=== PATIENT | male | born 1990 | race Caucasian/White ===

== ENCOUNTER 2022-02-06 03:16 | Emergency (ER) | payer OTHER ==
[2022-02-06] MEDS ORDERED: ONDANSETRON 4 MG/2 ML VIAL ONE (03:53)
[2022-02-06 04:02] LABS: Hematocrit 37.2 % (39.6-49.0); Lymphocytes % 11.1 % (15.3-44.8); MPV 8.4 fL (7.6-11.3); RBC Red Blood Cell Count 4.28 M/uL (4.33-5.43)
[2022-02-06 04:05] LABS: Protime INR 1.04
[2022-02-06 04:20] LABS: Urine Blood Trace-intact (Negative); Urine Glucose Negative (Negative); Urine Protein Negative (Negative); Urine Specific Gravity >=1.030 (1.005-1.030); Urine pH 5.5 (5.0-7.0)
[2022-02-06 04:30] LABS: ALT/SGPT 28 U/L (12-78); AST/SGOT 21 U/L (15-37); Albumin 3.4 g/dL (3.4-5.0); Alkaline Phosphatase 91 U/L (45-117); BUN Blood Urea Nitrogen 14 mg/dL (7-18); Bicarbonate 25 mmol/L (21-32); Bilirubin Total 0.2 mg/dL (0.2-1.0); Glomerular Filtration Rate 113 ml/min (=/>90); Glucose Level 87 mg/dL (74-106); Potassium 3.9 mmol/L (3.5-5.1); Protein, Total 7.3 g/dL (6.4-8.2); Sodium Level 140 mmol/L (136-145)
[2022-02-06 04:31] LABS: Bilirubin Direct < 0.1 mg/dL (0-0.2)
[2022-02-06 04:34] LABS: Barbiturates NEGATIVE (NEGATIVE); Benzodiazepines NEGATIVE (NEGATIVE); Cocaine NEGATIVE (NEGATIVE); METHAMPHETAM NEGATIVE (NEGATIVE); Methadone NEGATIVE (NEGATIVE); Opiates NEGATIVE (NEGATIVE); Phencyclidine NEGATIVE (NEGATIVE); THC Cannibis POSITIVE (NEGATIVE)
[2022-02-06] MEDS ORDERED: QUETIAPINE 100MG TAB ONE (05:33)
--- NOTE | 2022-02-06 07:26 | EDPHYS ---
Physician Documentation [facility] Name: Nicolas Rice Age: 32 yrs Sex: Male : 1990 Arrival Date: 02/06/2022 Time: 03:18 Bed 8 Private MD: ED Physician Vamsi Vargas HPI: 02/06 03:42 This 32 yrs old Male presents to ER via Unassigned with complaints of nausea/ vomiting, ms3 ate mushroom. 03:42 The patient presents to the emergency department Ate mushroom from his yard. Context: ms3 Method: the patient has a confirmed or suspected ingestion, Mushroom, Time: 3 hour(s) ago, Extent: Mushroom, the OD/poisoning occurred at at home. Associated signs and symptoms: Pertinent positives: nausea, vomiting. Severity of symptoms: At their worst the symptoms were severe in the emergency department the symptoms are unchanged Pain is currently a 10 / 10. Historical: - Allergies: 03:56 Bactrim; tw5 - PMHx: 03:56 Bipolar disorder; tw5 - PSHx: 03:56 None; tw5 - Immunization history:: Flu vaccine is not up to date. - Social history:: Smoking status: Patient reports the use of cigarette tobacco products, denies chronic smoking, but will smoke occasionally, Reported history of juuling and/or vaping. ROS: 03:42 Constitutional: Negative for fever, and chills. ENT: Negative for injury, pain, and ms3 discharge, Neck: Negative for injury, pain, and swelling, Cardiovascular: Negative for chest pain, and palpitations. Respiratory: Negative for shortness of breath, cough, wheezing, and pleuritic chest pain. 03:42 MS/Extremity: Negative for injury and deformity, Skin: Negative for injury, rash, and discoloration. 03:42 Abdomen/GI: Positive for nausea and vomiting. 03:42 All other systems are negative. Exam: 03:23 ECG was reviewed by the Attending Physician. ms3 03:42 Constitutional: This is a well developed, well nourished patient who is awake, alert, ms3 and in no acute distress. Head/Face: Normocephalic, atraumatic. Eyes: Pupils equal round and reactive to light, extra-ocular motions intact. Lids and lashes normal. Conjunctiva and sclera are non-icteric and not injected. Periorbital areas with no swelling, redness, or edema. Cardiovascular: Regular rate and rhythm with a normal S1 and S2. No gallops, murmurs, or rubs. Normal PMI, no JVD. No pulse deficits. Respiratory: Lungs have equal breath sounds bilaterally, clear to auscultation and percussion. No rales, rhonchi or wheezes noted. No increased work of breathing, no retractions or nasal flaring. Abdomen/GI: Soft, non-tender, with normal bowel sounds. No distension or tympany. No guarding or rebound. No evidence of tenderness throughout. Skin: Warm, dry with normal turgor. Normal color with no rashes, no lesions, and no evidence of cellulitis. MS/ Extremity: Pulses equal, no cyanosis. Neurovascular intact. Full, normal range of motion. Psych: Awake, alert, with orientation to person, place and time. Behavior, mood, and affect are within normal limits. Vital Signs: 03:52 BP 124 / 92; Pulse 81; Resp 14; Temp 97.4; Pulse Ox 100% ; Weight 65.77 kg; Height 6 tw5 ft. 0 in. (182.88 cm); Pain 9/10; 07:04 BP 110 / 70; Pulse 85; Resp 15; Pulse Ox 99% ; ll1 07:30 BP 92 / 63; Pulse 79; Resp 16 S; Pulse Ox 99% on R/A; jg9 08:33 BP 102 / 62; Pulse 78; Resp 16; Pulse Ox 99% ; ll1 03:52 Body Mass Index 19.67 (65.77 kg, 182.88 cm) tw5 MDM: 03:18 Patient medically screened. ms3 03:42 Differential diagnosis: Ingestion/exposure to Mushroom Electrolyte abnormality vs ms3 Elevated LFTs. 07:01 Transition of care: After a detail discussion of the patient's case, care is ms3 transferred to Vamsi Vargas MD. 07:16 Data reviewed: vital signs, nurses notes, lab test result(s), CBC, drug level(s), nimisha electrolytes, hepatic panel. 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 Test interpretation: by ED physician or midlevel provider: ECG. Counseling: I had a detailed discussion with the patient and/or guardian regarding: the historical points, exam findings, and any diagnostic results supporting the discharge/admit diagnosis, lab results, radiology results, the need for outpatient follow up, for definitive care, a family practitioner, a psychiatrist. 02/06 03:18 Order name: Acetaminophen; Complete Time: 04:39 ms3 02/06 03:18 Order name: Basic Metabolic Panel; Complete Time: 04:39 ms3 02/06 03:18 Order name: CBC with Diff; Complete Time: 04:07 ms3 02/06 03:18 Order name: ETOH Level; Complete Time: 04:39 ms3 02/06 03:18 Order name: Hepatic Function; Complete Time: 04:39 ms3 02/06 03:18 Order name: PT-INR; Complete Time: 04:07 ms3 02/06 03:18 Order name: Ptt, Activated; Complete Time: 04:07 ms3 02/06 03:18 Order name: Salicylate; Complete Time: 04:39 ms3 02/06 03:18 Order name: Urine Drug Screen; Complete Time: 04:39 ms3 02/06 04:21 Order name: Urine Dipstick-Ancillary; Complete Time: 04:39 EDMS 05 07:26 Order name: BMP; Complete Time: 08:25 ll1 02/06 07:26 Order name: Hepatic Function; Complete Time: 08:25 ll1 02/06 03:18 Order name: EKG; Complete Time: 03:42 ms3 02/06 03:18 Order name: EKG - Nurse/Tech; Complete Time: 03:59 ms3 02/06 03:18 Order name: IV Saline Lock; Complete Time: 03:59 ms3 02/06 03:18 Order name: Labs collected and sent; Complete Time: 03:59 ms3 02/06 03:18 Order name: Suicide Screening ([place]); Complete Time: 03:59 ms3 02/06 03:18 Order name: Urine Dipstick-Ancillary (obtain specimen); Complete Time: 04:21 ms3 EC:23 Rate is 86 beats/min. Rhythm is regular. QRS Sta[place] is Normal. Clinical impression: NSR ms3 w/ Non-specific ST/T Changes. Interpreted by me. Administered Medications: 03:55 Drug: Zofran (Ondansetron) 4 mg Route: IVP; Site: right antecubital; ke1 07:26 Follow up: Response: No adverse reaction ll1 05:42 Drug: SEROquel (QUEtiapine) 200 mg Route: PO; ke1 07:26 Follow up: Response: No adverse reaction ll1 Disposition Summary: 02/06/22 07:25 Discharge Ordered Location: Home nimisha Problem: new nimisha Symptoms: have improved nimisha Condition: Stable nimisha Diagnosis - Abdominal tenderness nimisha - Poisoning by other drugs, medicaments and biological substances, accidental nimisha (unintentional) Followup: nimisha - With: Private Physician - When: 2 - 3 days - Reason: Recheck today's complaints, Continuance of care, Re-evaluation by your physician Followup: nimisha - With: Renato Adkins MD - When: 2 - 3 days - Reason: Recheck today's complaints, Re-evaluation by your physician Discharge Instructions: - Discharge Summary Sheet nimisha - Abdominal Pain, Adult nimisha - Poisonous Plant Ingestion nimisha - Abdominal Pain, Adult, [id number] nimisha - Nontoxic Ingestion, Adult nimisha Forms: - Medication Reconciliation Form nimisha - Thank You Letter nimisha - Antibiotic Education nimisha - Prescription Opioid Use nimisha Signatures: Dispatcher [employer] EDVamsi Post MD MD cha Sims, Marcus, DO DO ms3 Karina Villegas tw5 Elaine Sherwood RN RN ke1 Alesha Ponce RN ll1 Corrections: (The following items were deleted from the chart) 03:57 03:56 Allergies: No Known Allergies; tw5 tw5
--- NOTE | 2022-02-06 07:26 | ER ---
Nurse's Notes [facility] Name: Nicolas Rice Age: 32 yrs Sex: Male : 1990 Arrival Date: 02/06/2022 Time: 03:18 Bed 8 Private MD: Diagnosis: Abdominal tenderness;Poisoning by other drugs, medicaments and biological substances, accidental (unintentional) Presentation: 02/06 03:52 Chief complaint: Patient states: "My stomach hurts so bad, please help me." EMS states: tw5 "His mother called EMS when nicolas started complaining of stomach pains. He ate a mushroom in his front yard about 3 hours ago hoping to get high.". Coronavirus screen: Vaccine status: Patient reports being unvaccinated. Ebola Screen: Patient negative for fever greater than or equal to 101.5 degrees Fahrenheit, and additional compatible Ebola Virus Disease symptoms Patient denies exposure to infectious person. Patient denies travel to an Ebola-affected area in the 21 days before illness onset. Initial Sepsis Screen: Does the patient meet any 2 criteria? No. Patient's initial sepsis screen is negative. Does the patient have a suspected source of infection? No. Patient's initial sepsis screen is negative. Risk Assessment: Do you want to hurt yourself or someone else? Patient reports no desire to harm self or others. Onset of symptoms was February 05, 2022 at 22:00. 03:52 Method Of Arrival: EMS: [facility] tw5 03:52 Acuity: ADENIKE 3 tw5 Triage Assessment: 03:56 General: Appears uncomfortable, Behavior is anxious. Pain: Complains of pain in abdomen tw5 Pain currently is 9 out of 10 on a pain scale. Historical: - Allergies: 03:56 Bactrim; tw5 - PMHx: 03:56 Bipolar disorder; tw5 - PSHx: 03:56 None; tw5 - Immunization history:: Flu vaccine is not up to date. - Social history:: Smoking status: Patient reports the use of cigarette tobacco products, denies chronic smoking, but will smoke occasionally, Reported history of juuling and/or vaping. Screenin:57 Abuse screen: Denies threats or abuse. Denies injuries from another. Nutritional tw5 screening: No deficits noted. Tuberculosis screening: No symptoms or risk factors identified. Fall Risk Assessment: 03:29 General: Poison control contacted- Hung- She stated the earlier the symptoms start the tw5 less toxic the mushroom is. She suggested a metabolic panel, follow liver function. repeat labs in 4 hours. give fluids. watch patient for 4-6 hours. [phone]. . 03:57 Neuro: Level of Consciousness is awake, alert, obeys commands, Oriented to person, tw5 place, time, situation. Cardiovascular: No deficits noted. Respiratory: No deficits noted. 05:42 Reassessment: Patient is alert, oriented x 3, equal unlabored respirations, skin ke1 warm/dry/pink. Patient states symptoms have improved. 07:04 Reassessment: report received from continuum of care manager RN. ll1 07:45 Reassessment: No changes from previously documented assessment. Patient and/or family ll1 updated on plan of care and expected duration. Pain level reassessed. Patient is alert, oriented x 3, equal unlabored respirations, skin warm/dry/pink. 08:32 Reassessment: No changes from previously documented assessment. Patient and/or family ll1 updated on plan of care and expected duration. Pain level reassessed. Patient is alert, oriented x 3, equal unlabored respirations, skin warm/dry/pink. Patient states feeling better. Patient states symptoms have improved. Psych: 03:59 [place] Suicide Severity Screening: In the past month, have you wished you were tw5 or wished you could go to sleep and not wake up? Patient responds "No." "In the past month, have you actually had any thoughts of killing yourself?" Patient responds "no." "In your lifetime, have you ever done anything, started to do anything, or prepared to do anything to end your life?" Patient responds "no.". Subjective: Patient's mood is sad. Objective: Patient is cooperative. 05:43 Interventions: Patient reassessed during use of restraints. Patient is physically safe. ke1 Patient's cardiac status is stable. Patient's respirations are even and unlabored. 06:44 Safety Checks:. ke1 08:04 Patient uses marijuana. jg9 08:04 Commitment: n/a. jg9 Vital Signs: 03:52 BP 124 / 92; Pulse 81; Resp 14; Temp 97.4; Pulse Ox 100% ; Weight 65.77 kg; Height 6 tw5 ft. 0 in. (182.88 cm); Pain 9/10; 07:04 BP 110 / 70; Pulse 85; Resp 15; Pulse Ox 99% ; ll1 07:30 BP 92 / 63; Pulse 79; Resp 16 S; Pulse Ox 99% on R/A; jg9 08:33 BP 102 / 62; Pulse 78; Resp 16; Pulse Ox 99% ; ll1 03:52 Body Mass Index 19.67 (65.77 kg, 182.88 cm) tw5 ED Course: 03:18 Patient arrived in ED. ms3 03:18 Cristino Kaur DO is Attending Physician. ms3 03:29 Karina Villegas is Primary Nurse. tw5 03:47 EKG done, by ED staff, reviewed by Cristino Kaur DO. jw7 03:56 Triage completed. tw5 03:56 Maintain EMS IV. Site clean \\T\\ dry. Gauge \\T\\ site: 18 g r ac. ke 1 03:56 Arm band placed on Patient placed in an exam room. tw5 03:57 Patient has correct armband on for positive identification. Bed in low position. Call tw5 light in reach. Side rails up X2. Pulse ox on. NIBP on. Door closed. Noise minimized. Lights dimmed. Moved to private room. Warm blanket given. Verbal reassurance given. Diet: Patient given ice chips. 03:59 Acetaminophen Sent. tw5 03:59 Salicylate Sent. tw5 03:59 Ptt, Activated Sent. tw5 03:59 ETOH Level Sent. tw5 03:59 Hepatic Function Sent. tw5 03:59 CBC with Diff Sent. tw5 03:59 Basic Metabolic Panel Sent. tw5 03:59 PT-INR Sent. tw5 07:02 Attending Physician role handed off by Cristino Kaur DO ms3 07:02 Vamsi Vargas MD is Attending Physician. ms3 07:06 Alesha Ponce, LUIS ARMANDO is Primary Nurse. ll1 07:20 Renato Adkins MD is Referral Physician. [facility] 07:57 BMP Sent. ll1 07:57 Hepatic Function Sent. ll1 08:02 No apparent distress. Resting quietly. Awaiting lab results, Awaiting disposition. jg9 08:32 IV discontinued, intact, bleeding controlled, No redness/swelling at site. Pressure 1 dressing applied. 08:32 No provider procedures requiring assistance completed. ll1 Administered Medications: 03:55 Drug: Zofran (Ondansetron) 4 mg Route: IVP; Site: right antecubital; ke1 07:26 Follow up: Response: No adverse reaction 1 05:42 Drug: SEROquel (QUEtiapine) 200 mg Route: PO; ke1 07:26 Follow up: Response: No adverse reaction 1 Medication: 03:57 VIS not applicable for this client. tw5 Outcome: 07:25 Discharge ordered by . nimisha 08:32 Discharged to home ambulatory. 1 08:32 Condition: stable 08:32 Discharge instructions given to patient, Instructed on discharge instructions, follow up and referral plans. Demonstrated understanding of instructions, follow-up care. 08:36 Patient left the ED. 1 Signatures: Vamsi Vargas MD MD cha Lewis, Lynsay, RN RN ll1 Cristino Kaur DO DO ms3 Karina Villegas tw5 Sylwia Back RN RN jg9 Loretta Duncan jw7 Elaine Sherwood, LUIS ARMANDO RN ke1 Corrections: (The following items were deleted from the chart) 03:57 03:56 Allergies: No Known Allergies; tw5 tw5 07:05 07:04 BP 96 / 64; Pulse 85bpm; Resp 15bpm; Pulse Ox 99%; ll1 ll1
[2022-02-06 08:01] LABS: ALT/SGPT 26 U/L (12-78); AST/SGOT 21 U/L (15-37); Albumin 3.3 g/dL (3.4-5.0); Alkaline Phosphatase 88 U/L (45-117); BUN Blood Urea Nitrogen 16 mg/dL (7-18); Bicarbonate 24 mmol/L (21-32); Bilirubin Total 0.3 mg/dL (0.2-1.0); Glomerular Filtration Rate 118 ml/min (=/>90); Glucose Level 97 mg/dL (74-106); Potassium 4.1 mmol/L (3.5-5.1); Protein, Total 7.1 g/dL (6.4-8.2); Sodium Level 139 mmol/L (136-145)
[2022-02-06 08:21] LABS: Bilirubin Direct < 0.1 mg/dL (0-0.2)
[2022-02-06 08:55] VITALS: O2SAT 99
[2022-02-06 08:59] VITALS: BP 102/62
--- NOTE | 2022-02-06 12:51 | EKG ---
Test Date: 2022-02-06 Test Time: 03:23:20 Child Daycare Worker: LUIS MEASUREMENT RESULTS: Intervals: Rate: 86 NM: 172 QRSD: 90 QT: 366 QTc: 437 [place]: P: 47 NM: 172 QRS: 65 T: 52 INTERPRETIVE STATEMENTS: Normal sinus rhythm Minimal voltage criteria for LVH, may be normal variant Nonspecific ST abnormality Abnormal ECG No previous ECG available for comparison Electronically Signed On 02-06-22 12:50:23 CDT by Cody Montilla
== END 2022-02-06 08:36 | disposition home or self-care (01) ==
LOC: ER 03:16
DX: T62.0X1A Toxic effect of ingested mushrooms, accidental (unintentional), initial encounter (principal); Y92.017 Garden or yard in single-family (private) house as the place of occurrence of the external cause; R10.819 Abdominal tenderness, unspecified site; Z88.1 Allergy status to other antibiotic agents; F31.9 Bipolar disorder, unspecified; F17.210 Nicotine dependence, cigarettes, uncomplicated
CPT/HCPCS: 93005; 85025; 80048 ×2; 36415; 80320; 80329 ×2; 85610; 80076 ×2; 85730; 81003; 80307; 96374; 99284; J2405